=== PATIENT | male | born 1965 | race African-American/Black ===

== ENCOUNTER 2016-07-09 12:56 | Inpatient (IN) | payer OTHER ==
[2016-07-09 19:43] VITALS: BMI 27.3
--- NOTE | 2016-07-09 19:49 | HP ---
COWS - Scale Resting Pulse: 1= [place] 81-100 Sweatin= Chills/Flushing Restless Observation: 3= Extraneous Movement Pupil Size: 0= Normal to Room Light Bone or Joint Aches: 2= Severe Diffuse Aches Runny Nose/ Eye Tearin= Nasal Congestion GI Upset > 30mins: 2= Nausea/Diarrhea Tremor Observation: 2= Slight Tremor Visible Yawning Observation: 0= None Anxiety or Irritability: 2=Irritable/Anxious Goose Flesh Skin: 0=Smooth Skin COWS Score: 14 CIWA Score - CIWA Score Nausea/Vomitin-Mild Nausea/No Vomiting Muscle Tremors: 4-Moderate,w/Arms Extend Anxiety: 4-Mod. Anxious/Guarded Agitation: 4-Moderately Restless Paroxysmal Sweats: 1-Minimal Palms Moist Orientation: 0-Oriented Tacttile Disturbances: 0-None Auditory Disturbances: 0-None Visual Disturbances: 0-None Headache: 0-None Present CIWA-Ar Total Score: 14 Admission ROS S - HPI Chief Complaint: WITHDRAWAL SX Allergies/Adverse Reactions: Allergies Allergy/AdvReac Type Severity Reaction Status Date / Time No Known Drug Allergies Allergy Verified 07/09/16 19:13 History of Present Illness: 51 YEARS OLD MALE WITH LONG HISTORY OF ALCOHOL OPIOID DEPENDENCE HAS DIABETES II DENIES MENTAL ILLNESS IS ADMITTED TO DETOX Exam Limitations: No Limitations - Ebola screening Have you traveled outside of the country in the last 21 days: No Have you had contact with anyone from an Ebola affected area: No Have you been sick,other than usual withdrawal symptoms: No Do you have a fever: No - Review of Systems Constitutional: Chills, Changes in sleep, Weight Stable EENT: reports: No Symptoms Reported Respiratory: reports: No Symptoms reported Cardiac: reports: No Symptoms Reported GI: reports: Nausea, Poor Fluid Intake, Abdominal cramping : reports: No Symptoms Reported Musculoskeletal: reports: Back Pain, Joint Pain, Muscle Pain, Neck Pain Integumentary: reports: No Symptoms Reported Neuro: reports: Tremors Endocrine: reports: No Symptoms Reported Hematology: reports: No Symptoms Reported Psychiatric: reports: Judgement Intact, Mood/Affect Appropiate Other Systems: Reviewed and Negative Patient History - Patient Medical History Hx Anemia: No Hx Asthma: No Hx Chronic Obstructive Pulmonary Disease (COPD): No Hx Cancer: No Hx Cardiac Disorders: No Hx Congestive Heart Failure: No Hx Hypertension: No Hx Hypercholesterolemia: No Hx Pacemaker: No HX Cerebrovascular Accident: No Hx Seizures: No Hx Dementia: No Hx Diabetes: Yes (BGM: 143) Hx Gastrointestinal Disorders: No Hx Liver Disease: No Hx Genitourinary Disorders: No Hx Sexually Transmitted Disorders: No Hx Renal Disease (ESRD): No Hx Thyroid Disease: No Hx Human Immunodeficiency Virus (HIV): No Hx Hepatitis C: No Hx Depression: No Hx Suicide Attempt: No Hx Bipolar Disorder: No Hx Schizophrenia: No - Patient Surgical History Past Surgical History: No Hx Neurologic Surgery: No Hx Cataract Extraction: No Hx Cardiac Surgery: No Hx Lung Surgery: No Hx Breast Surgery: No Hx Breast Biopsy: No Hx Abdominal Surgery: No Hx Appendectomy: No Hx Cholecystectomy: No Hx Genitourinary Surgery: No Hx Orthopedic Surgery: No - PPD History Previous Implant?: Yes Documented Results: Negative w/o proof Implanted On Prior R Admission?: No PPD to be Administered?: Yes - Smoking Cessation Smoking history: Never smoked Have you smoked in the past 12 months: No Hx Chewing Tobacco Use: No Initiated information on smoking cessation: No - Substance & Tx. History Hx Alcohol Use: Yes Hx Substance Use: Yes Substance Use Type: Alcohol, Opiates Hx Substance Use Treatment: No - Substances Abused Heroin Route: Inhalation Frequency: Daily Amount used: 10-12 bags Age of first use: 34 Date of Last Use: 07/09/16 Alcohol Route: Oral Frequency: Daily Amount used: VOLKA 2 PINTS Age of first use: 19 Date of Last Use: 07/09/16 Family Disease History - Family Disease History Family Disease History: [place]: Father (), Mother (), Respiratory: Sister (), Other: Brother () Admission Physical Exam S - Vital Signs Vital Signs: Vital Signs - 24 hr 07/09/16 18:48 Temperature 98.7 F Pulse Rate 82 Respiratory 20 Rate Blood Pressure 114/72 - Physical General Appearance: Yes: Nourished, Appropriately Dressed, Mild Distress, Tremorous, Irritable, Sweating, Anxious HEENTM: Yes: Hearing grossly Normal, Normal ENT Inspection, Normocephalic, Normal Voice Respiratory: Yes: Chest Non-Tender, Lungs Clear, Normal Breath Sounds, No Respiratory Distress, No Accessory Muscle Use Neck: Yes: Supple, Trachea in good position Breast: Yes: Breasts Symetrical Cardiology: Yes: Regular Rhythm, Regular Rate, S1, S2 Abdominal: Yes: Non Tender Genitourinary: Yes: Within Normal Limits Extremities: Yes: Normal Range of Motion, Non-Tender, Tremors Neurological: Yes: Alert, Motor Strength 5/5, Normal Mood/Affect, Normal Response Integumentary: Yes: Warm Lymphatic: Yes: Within Normal Limits - Diagnostic (1) Alcohol dependence with uncomplicated withdrawal Current Visit: Yes Status: Acute (2) Opioid dependence with withdrawal Current Visit: Yes Status: Acute (3) Cocaine dependence, uncomplicated Current Visit: Yes Status: Chronic (4) Diabetes mellitus type II, controlled Current Visit: Yes Status: Acute Cleared for Admission [facility] - Detox or Rehab [facility] Level of Care: Medically Managed Detox Regimen/Protocol: Methadone/Librium [facility] Breath Alcohol Content Breath Alcohol Content: 0 Urine Drug Screen - Results Drug Screen Negative: No Urine Drug Screen Results: SPENCER-Cocaine, OPI-Opiates
[2016-07-09] MEDS ORDERED: MAGNESIUM CITRATE 300 ML BOTTLE PO PRN (19:52)
[2016-07-09] MEDS ORDERED: ACETAMINOPHEN 325 MG TABLET (FP) PO PRN (19:52)
[2016-07-09] MEDS ORDERED: MAG HYDROX/AL HYDROX/SIMETH 30 ML UNIT-DOSE CUP PO PRN (19:52)
[2016-07-09] MEDS ORDERED: P-EPHED 60MG/TRIPROLIDI 2.5MG TABLET PO PRN (19:52)
[2016-07-09] MEDS ORDERED: MAGNESIUM HYDROX 2400MG/30ML ORAL SUSPENSION 30 ML CUP PO PRN (19:52)
[2016-07-09] MEDS ORDERED: IBUPROFEN 400 MG TABLET (FP) PO PRN (19:52)
[2016-07-09] MEDS ORDERED: METHADONE HCL 10 MG TABLET (FOR DETOX USE ONLY) PO ONE ×2 (19:52→23:00)
[2016-07-09] MEDS ORDERED: MENTHOL/PHENOL 1 EACH UD MM PRN (19:52)
[2016-07-09] MEDS ORDERED: LOPERAMIDE HCL 2 MG CAPSULE PO PRN (19:52)
[2016-07-09] MEDS ORDERED: guaiFENesin/D-METHORPHAN HB 10 ML UNIT-DOSE CUPS PO PRN (19:52)
[2016-07-09] MEDS ORDERED: METHADONE HCL 10 MG TABLET (FOR DETOX USE ONLY) ONE (22:23)
[2016-07-09] MEDS: chlordiazePOXIDE HCL 25 MG CAPSULE PO SCH (22:26)
[2016-07-09] MEDS: THIAMINE HCL 100 MG TABLET (FP) PO SCH (22:26)
[2016-07-09] MEDS: diphenhydrAMINE HCL 50 MG CAPSULE PO PRN (22:26)
[2016-07-09 23:26] LABS: URINE APPEARANCE CLEAR; URINE BILIRUBIN NEGATIVE (NEGATIVE); URINE BLOOD NEGATIVE (NEGATIVE); URINE COLOR LTYELLOW; URINE GLUCOSE (UA) 3+ (NEGATIVE); URINE KETONE NEGATIVE (NEGATIVE); URINE LEUK ESTERASE NEGATIVE (NEGATIVE); URINE NITRITE NEGATIVE (NEGATIVE); URINE PROTEIN NEGATIVE (NEGATIVE); URINE UROBILINOGEN NEGATIVE E.U./dl (0.2-1.0)
[2016-07-10] MEDS: chlordiazePOXIDE HCL 25 MG CAPSULE PO SCH ×4 (06:18→22:28)
[2016-07-10] MEDS: metFORMIN HCL 500 MG TABLET (FP) PO SCH ×2 (06:22→17:57)
[2016-07-10 09:57] LABS: MCH 27.2 pg (25.7-33.7); MCHC 32.4 g/dl (32.0-35.9); MEAN PLT VOLUME 8.2 fl (7.5-11.1); PLATELET COUNT 250 K/MM3 (134-434); RDW 13.5 % (11.9-15.9); WHITE BLOOD COUNT 9.6 K/mm3 (4.0-10.0)
[2016-07-10 09:59] LABS: ALBUMIN 3.2 g/dl (3.4-5.0); ANION GAP 9 (8-16); BILIRUBIN,TOTAL 0.3 mg/dL (0.2-1.0); CALCIUM 8.6 mg/dL (8.5-10.1); CO2 28 mmol/L (21-32); COCKROFT - GAULT 99.79; GLUCOSE,RANDOM 172 mg/dL (74-106); SGOT/AST 16 U/L (15-37); SGPT/ALT 22 U/L (12-78); TOT PROT 6.2 g/dl (6.4-8.2)
[2016-07-10 10:00] LABS: ALK PHOS 86 U/L (45-117)
[2016-07-10] MEDS ORDERED: METHADONE HCL 10 MG TABLET (FOR DETOX USE ONLY) PO SCH (10:00)
[2016-07-10] MEDS: PRENATAL VITAMINS W/ FOLIC ACID TABLET (FP) PO SCH (10:46)
--- NOTE | 2016-07-10 12:13 | PN ---
[facility] CIWA - CIWA Score Nausea/Vomitin-No Nausea/No Vomiting Muscle Tremors: 4-Moderate,w/Arms Extend Anxiety: 3 Agitation: 3 Paroxysmal Sweats: 3 Orientation: 0-Oriented Tacttile Disturbances: 0-None Auditory Disturbances: 0-None Visual Disturbances: 0-None Headache: 0-None Present CIWA-Ar Total Score: 13 BHS COWS - Scale Resting Pulse: 1= [place] 81-100 Sweatin=Flushed/Facial Moisture Restless Observation: 1= Difficult to Sit Still Pupil Size: 0= Normal to Room Light Bone or Joint Aches: 2= Severe Diffuse Aches Runny Nose/ Eye Tearin= Nasal Congestion GI Upset > 30mins: 0= None Tremor Observation of Outstretched Hands: 1= Tremor [place], Not Seen Yawning Observation: 2= >3x During Session Anxiety or Irritability: 2=Irritable/Anxious Goose Flesh Skin: 0=Smooth Skin COWS Score: 12 S Progress Note (SOAP) Subjective: shakes sweats interrupted sleep agitation irritable Objective: 07/10/16 12:12 Vital Signs Temperature 98.2 F 07/10/16 09:48 Pulse Rate 91 H 07/10/16 09:48 Respiratory Rate 20 07/10/16 09:48 Blood Pressure 105/64 07/10/16 09:48 O2 Sat by Pulse Oximetry (%) Laboratory Tests 07/09/16 07/09/16 07/10/16 19:27 23:10 06:18 WBC RBC Hgb Hct MCV MCHC RDW Plt Count MPV Sodium Potassium Chloride Carbon Dioxide Anion Gap BUN Creatinine Creat Clearance w eGFR POC Glucometer 143 196 Random Glucose Calcium Total Bilirubin AST ALT Alkaline Phosphatase Total Protein Albumin Urine Color Ltyellow Urine Appearance Clear Urine pH 5.0 Ur Specific [place] 1.020 Urine Protein Negative Urine Glucose (UA) 3+ H Urine Ketones Negative Urine Blood Negative Urine Nitrite Negative Urine Bilirubin Negative Urine Urobilinogen Negative Ur Leukocyte Esterase Negative 07/10/16 07/10/16 07:00 07:00 WBC 9.6 RBC 4.48 Hgb 12.2 Hct 37.6 MCV 84.0 MCHC 32.4 RDW 13.5 Plt Count 250 MPV 8.2 Sodium 141 Potassium 4.1 Chloride 104 Carbon Dioxide 28 Anion Gap 9 BUN 14 Creatinine 1.0 Creat Clearance w eGFR > 60 POC Glucometer Random Glucose 172 H Calcium 8.6 Total Bilirubin 0.3 AST 16 ALT 22 Alkaline Phosphatase 86 Total Protein 6.2 L Albumin 3.2 L Urine Color Urine Appearance Urine pH Ur Specific [place] Urine Protein Urine Glucose (UA) Urine Ketones Urine Blood Urine Nitrite Urine Bilirubin Urine Urobilinogen Ur Leukocyte Esterase awake/alert ambulating no acute distress Assessment: 07/10/16 12:13 withdrawal sx Plan: continue detox increase fluids
--- NOTE | 2016-07-10 13:12 | EKG ---
Test Reason : Blood Pressure : / mmHG Vent. Rate : 081 BPM Atrial Rate : 081 BPM P-R Int : 166 ms QRS Dur : 080 ms QT Int : 362 ms P-R-T Axes : 076 055 049 degrees QTc Int : 420 ms NORMAL SINUS RHYTHM NORMAL ECG NO PREVIOUS ECGS AVAILABLE Confirmed by SAM ROACH, EULALIA ([id number]) on 07/10/2016 1:12:11 PM Referred By: Blaise Schaefer Confirmed By:EULALIA VARGAS MD
[2016-07-10] MEDS: THIAMINE HCL 100 MG TABLET (FP) PO SCH (22:28)
[2016-07-10] MEDS: diphenhydrAMINE HCL 50 MG CAPSULE PO PRN (22:29)
[2016-07-11] MEDS: metFORMIN HCL 500 MG TABLET (FP) PO SCH ×2 (06:19→17:59)
[2016-07-11] MEDS: chlordiazePOXIDE HCL 25 MG CAPSULE PO SCH ×3 (06:20→17:59)
[2016-07-11] MEDS: chlordiazePOXIDE HCL 25 MG CAPSULE PO PRN (07:37)
[2016-07-11] MEDS: PRENATAL VITAMINS W/ FOLIC ACID TABLET (FP) PO SCH (11:01)
[2016-07-11] MEDS: METHADONE HCL 5 MG TABLET (FOR DETOX USE ONLY) PO SCH (11:01)
--- NOTE | 2016-07-11 12:52 | PN ---
S CIWA - CIWA Score Nausea/Vomitin Muscle Tremors: 4-Moderate,w/Arms Extend Anxiety: 3 Agitation: 0-Normal Activity Paroxysmal Sweats: 3 Orientation: 2-Disoriented Date<2 days Tacttile Disturbances: 1-Very Mild Itch/Numbness Auditory Disturbances: 2-Mild Harshness/Frighten Visual Disturbances: 0-None Headache: 0-None Present CIWA-Ar Total Score: 17 BHS COWS - Scale Resting Pulse: 1= [place] 81-100 Sweatin= Chills/Flushing Restless Observation: 0= Sits Still Pupil Size: 0= Normal to Room Light Bone or Joint Aches: 2= Severe Diffuse Aches Runny Nose/ Eye Tearin= Runny Nose/Eyes GI Upset > 30mins: 1= Stomach Cramp Tremor Observation of Outstretched Hands: 2= Slight Tremor Visible Yawning Observation: 2= >3x During Session Anxiety or Irritability: 2=Irritable/Anxious Goose Flesh Skin: 0=Smooth Skin COWS Score: 13 S Progress Note (SOAP) Subjective: Interrupted Sleep, Tremors, Sweating. Objective: PT. A & O X 2 (DISORIENTED ABOUT DAY / DATE). 07/11/16 12:53 Vital Signs Temperature 97.2 F L 07/11/16 10:00 Pulse Rate 86 07/11/16 10:00 Respiratory Rate 18 07/11/16 10:00 Blood Pressure 103/67 07/11/16 10:00 O2 Sat by Pulse Oximetry (%) Laboratory Tests 07/09/16 07/09/16 07/10/16 19:27 23:10 06:18 WBC RBC Hgb Hct MCV MCHC RDW Plt Count MPV Sodium Potassium Chloride Carbon Dioxide Anion Gap BUN Creatinine Creat Clearance w eGFR POC Glucometer 143 196 Random Glucose Calcium Total Bilirubin AST ALT Alkaline Phosphatase Total Protein Albumin Urine Color Ltyellow Urine Appearance Clear Urine pH 5.0 Ur Specific [place] 1.020 Urine Protein Negative Urine Glucose (UA) 3+ H Urine Ketones Negative Urine Blood Negative Urine Nitrite Negative Urine Bilirubin Negative Urine Urobilinogen Negative Ur Leukocyte Esterase Negative RPR Titer 07/10/16 07/10/16 07/10/16 07:00 07:00 07:00 WBC 9.6 RBC 4.48 Hgb 12.2 Hct 37.6 MCV 84.0 MCHC 32.4 RDW 13.5 Plt Count 250 MPV 8.2 Sodium 141 Potassium 4.1 Chloride 104 Carbon Dioxide 28 Anion Gap 9 BUN 14 Creatinine 1.0 Creat Clearance w eGFR > 60 POC Glucometer Random Glucose 172 H Calcium 8.6 Total Bilirubin 0.3 AST 16 ALT 22 Alkaline Phosphatase 86 Total Protein 6.2 L Albumin 3.2 L Urine Color Urine Appearance Urine pH Ur Specific [place] Urine Protein Urine Glucose (UA) Urine Ketones Urine Blood Urine Nitrite Urine Bilirubin Urine Urobilinogen Ur Leukocyte Esterase RPR Titer Nonreactive 07/10/16 07/11/16 16:40 06:18 WBC RBC Hgb Hct MCV MCHC RDW Plt Count MPV Sodium Potassium Chloride Carbon Dioxide Anion Gap BUN Creatinine Creat Clearance w eGFR POC Glucometer 248 259 Random Glucose Calcium Total Bilirubin AST ALT Alkaline Phosphatase Total Protein Albumin Urine Color Urine Appearance Urine pH Ur Specific [place] Urine Protein Urine Glucose (UA) Urine Ketones Urine Blood Urine Nitrite Urine Bilirubin Urine Urobilinogen Ur Leukocyte Esterase RPR Titer LABS NOTED. Assessment: 07/11/16 12:53 WITHDRAWAL SYMPTOMS. Plan: CONTINUE DETOX. INCREASE PO FLUID INTAKE.
[2016-07-11] MEDS: diphenhydrAMINE HCL 50 MG CAPSULE PO PRN (23:12)
[2016-07-11] MEDS: chlordiazePOXIDE 5 MG CAPSULE PO SCH (23:12)
[2016-07-11] MEDS: THIAMINE HCL 100 MG TABLET (FP) PO SCH (23:12)
[2016-07-12] MEDS: chlordiazePOXIDE 5 MG CAPSULE PO SCH ×3 (06:17→17:39)
[2016-07-12] MEDS: metFORMIN HCL 500 MG TABLET (FP) PO SCH ×2 (06:18→17:39)
[2016-07-12] MEDS: METHADONE HCL 5 MG TABLET (FOR DETOX USE ONLY) PO SCH (11:20)
[2016-07-12] MEDS: PRENATAL VITAMINS W/ FOLIC ACID TABLET (FP) PO SCH (11:20)
[2016-07-12] MEDS: chlordiazePOXIDE HCL 25 MG CAPSULE PO PRN (14:21)
--- NOTE | 2016-07-12 19:29 | PN ---
BHS Progress Note (SOAP) Subjective: Interrupted sleep, Sweating. Objective: PT. A & O X 3. 07/12/16 19:28 Vital Signs Temperature 99.5 F 07/12/16 18:31 Pulse Rate 94 H 07/12/16 18:31 Respiratory Rate 20 07/12/16 18:31 Blood Pressure 108/63 07/12/16 18:31 O2 Sat by Pulse Oximetry (%) Laboratory Tests 07/09/16 07/09/16 07/10/16 19:27 23:10 06:18 WBC RBC Hgb Hct MCV MCHC RDW Plt Count MPV Sodium Potassium Chloride Carbon Dioxide Anion Gap BUN Creatinine Creat Clearance w eGFR POC Glucometer 143 196 Random Glucose Calcium Total Bilirubin AST ALT Alkaline Phosphatase Total Protein Albumin Urine Color Ltyellow Urine Appearance Clear Urine pH 5.0 Ur Specific [place] 1.020 Urine Protein Negative Urine Glucose (UA) 3+ H Urine Ketones Negative Urine Blood Negative Urine Nitrite Negative Urine Bilirubin Negative Urine Urobilinogen Negative Ur Leukocyte Esterase Negative RPR Titer 07/10/16 07/10/16 07/10/16 07:00 07:00 07:00 WBC 9.6 RBC 4.48 Hgb 12.2 Hct 37.6 MCV 84.0 MCHC 32.4 RDW 13.5 Plt Count 250 MPV 8.2 Sodium 141 Potassium 4.1 Chloride 104 Carbon Dioxide 28 Anion Gap 9 BUN 14 Creatinine 1.0 Creat Clearance w eGFR > 60 POC Glucometer Random Glucose 172 H Calcium 8.6 Total Bilirubin 0.3 AST 16 ALT 22 Alkaline Phosphatase 86 Total Protein 6.2 L Albumin 3.2 L Urine Color Urine Appearance Urine pH Ur Specific [place] Urine Protein Urine Glucose (UA) Urine Ketones Urine Blood Urine Nitrite Urine Bilirubin Urine Urobilinogen Ur Leukocyte Esterase RPR Titer Nonreactive 07/10/16 07/11/16 07/11/16 16:40 06:18 16:40 WBC RBC Hgb Hct MCV MCHC RDW Plt Count MPV Sodium Potassium Chloride Carbon Dioxide Anion Gap BUN Creatinine Creat Clearance w eGFR POC Glucometer 248 259 270 Random Glucose Calcium Total Bilirubin AST ALT Alkaline Phosphatase Total Protein Albumin Urine Color Urine Appearance Urine pH Ur Specific [place] Urine Protein Urine Glucose (UA) Urine Ketones Urine Blood Urine Nitrite Urine Bilirubin Urine Urobilinogen Ur Leukocyte Esterase RPR Titer 07/12/16 07/12/16 06:16 16:26 WBC RBC Hgb Hct MCV MCHC RDW Plt Count MPV Sodium Potassium Chloride Carbon Dioxide Anion Gap BUN Creatinine Creat Clearance w eGFR POC Glucometer 250 313 Random Glucose Calcium Total Bilirubin AST ALT Alkaline Phosphatase Total Protein Albumin Urine Color Urine Appearance Urine pH Ur Specific [place] Urine Protein Urine Glucose (UA) Urine Ketones Urine Blood Urine Nitrite Urine Bilirubin Urine Urobilinogen Ur Leukocyte Esterase RPR Titer LABS NOTED. Assessment: 07/12/16 19:28 WITHDRAWAL SYMPTOMS. Plan: CONTINUE DETOX.
[2016-07-12] MEDS: chlordiazePOXIDE HCL 10 MG CAPSULE PO SCH (23:13)
[2016-07-12] MEDS: THIAMINE HCL 100 MG TABLET (FP) PO SCH (23:13)
[2016-07-12] MEDS: diphenhydrAMINE HCL 50 MG CAPSULE PO PRN (23:13)
[2016-07-13] MEDS: chlordiazePOXIDE HCL 10 MG CAPSULE PO SCH ×3 (05:58→17:35)
[2016-07-13] MEDS: metFORMIN HCL 500 MG TABLET (FP) PO SCH ×2 (07:18→17:35)
[2016-07-13] MEDS ORDERED: METHADONE HCL 10 MG TABLET (FOR DETOX USE ONLY) PO SCH (10:00)
[2016-07-13] MEDS: PRENATAL VITAMINS W/ FOLIC ACID TABLET (FP) PO SCH (10:56)
[2016-07-13] MEDS ORDERED: INSULIN (NOVOLOG) ASPART 100 UNITS/ML 10ML VIAL SQ ONE (17:56)
--- NOTE | 2016-07-13 17:59 | PN ---
BHS Progress Note (SOAP) Subjective: Sweating,interrupted sleep,restless Objective: 07/13/16 17:58 Vital Signs - 8 hr 07/13/16 07/13/16 11:14 17:51 Temperature 99.1 F 98.2 F Pulse Rate 89 91 H Respiratory 18 20 Rate Blood Pressure 121/65 106/64 Laboratory Last Values WBC 9.6 K/mm3 (4.0-10.0) 07/10/16 07:00 RBC 4.48 M/mm3 (4.00-5.60) 07/10/16 07:00 Hgb 12.2 GM/dL (11.7-16.9) 07/10/16 07:00 Hct 37.6 % (35.4-49) 07/10/16 07:00 MCV 84.0 fl (80-96) 07/10/16 07:00 MCHC 32.4 g/dl (32.0-35.9) 07/10/16 07:00 RDW 13.5 % (11.9-15.9) 07/10/16 07:00 Plt Count 250 K/MM3 (134-434) 07/10/16 07:00 MPV 8.2 fl (7.5-11.1) 07/10/16 07:00 Sodium 141 mmol/L (136-145) 07/10/16 07:00 Potassium 4.1 mmol/L (3.5-5.1) 07/10/16 07:00 Chloride 104 mmol/L (98-107) 07/10/16 07:00 Carbon Dioxide 28 mmol/L (21-32) 07/10/16 07:00 Anion Gap 9 (8-16) 07/10/16 07:00 BUN 14 mg/dL (7-18) 07/10/16 07:00 Creatinine 1.0 mg/dL (0.7-1.3) 07/10/16 07:00 Creat Clearance w eGFR > 60 (>60) 07/10/16 07:00 POC Glucometer 265 UNITS (()) 07/13/16 05:57 Random Glucose 172 mg/dL (74-106) H 07/10/16 07:00 Calcium 8.6 mg/dL (8.5-10.1) 07/10/16 07:00 Total Bilirubin 0.3 mg/dL (0.2-1.0) 07/10/16 07:00 AST 16 U/L (15-37) 07/10/16 07:00 ALT 22 U/L (12-78) 07/10/16 07:00 Alkaline Phosphatase 86 U/L (45-117) 07/10/16 07:00 Total Protein 6.2 g/dl (6.4-8.2) L 07/10/16 07:00 Albumin 3.2 g/dl (3.4-5.0) L 07/10/16 07:00 Urine Color Ltyellow 07/09/16 23:10 Urine Appearance Clear 07/09/16 23:10 Urine pH 5.0 (5.0-8.0) 07/09/16 23:10 Ur Specific [place] 1.020 (1.005-1.025) 07/09/16 23:10 Urine Protein Negative (NEGATIVE) 07/09/16 23:10 Urine Glucose (UA) 3+ (NEGATIVE) H 07/09/16 23:10 Urine Ketones Negative (NEGATIVE) 07/09/16 23:10 Urine Blood Negative (NEGATIVE) 07/09/16 23:10 Urine Nitrite Negative (NEGATIVE) 07/09/16 23:10 Urine Bilirubin Negative (NEGATIVE) 07/09/16 23:10 Urine Urobilinogen Negative E.U./dl (0.2-1.0) 07/09/16 23:10 Ur Leukocyte Esterase Negative (NEGATIVE) 07/09/16 23:10 RPR Titer Nonreactive (NONREACTIVE) 07/10/16 07:00 labs noted Assessment: 07/13/16 17:59 Withdrawal sx. Plan: Continue detox
[2016-07-13] MEDS ORDERED: INSULIN (NOVOLOG) ASPART 100 UNITS/ML 10ML VIAL ONE (20:22)
[2016-07-13] MEDS: hydrOXYzine PAMOATE 50 MG CAPSULE (FP) PO PRN (21:23)
[2016-07-13] MEDS: THIAMINE HCL 100 MG TABLET (FP) PO SCH (22:29)
[2016-07-13] MEDS: diphenhydrAMINE HCL 50 MG CAPSULE PO PRN (22:29)
[2016-07-14] MEDS ORDERED: METHADONE HCL 5 MG TABLET (FOR DETOX USE ONLY) PO SCH (06:00)
[2016-07-14] MEDS ORDERED: INSULIN (NOVOLOG) ASPART 100 UNITS/ML 10ML VIAL ONE (06:55)
[2016-07-14] MEDS: metFORMIN HCL 500 MG TABLET (FP) PO SCH (06:57)
[2016-07-14] MEDS ORDERED: INSULIN SLIDING SCALE (NOVOLOG) 1 VIAL SQ SCH (07:00)
[2016-07-14] MEDS: hydrOXYzine PAMOATE 50 MG CAPSULE (FP) PO PRN (07:01)
[2016-07-14 10:14] VITALS: BP 132/67; PULSE 88; TEMP 98.4
[2016-07-14] MEDS: PRENATAL VITAMINS W/ FOLIC ACID TABLET (FP) PO SCH (10:44)
--- NOTE | 2016-07-14 14:18 | DS ---
[facility] Detox Discharge Summary Admission Date: 07/09/16 Discharge Date: 07/14/16 - History Present History: Alcohol Dependence, Cocaine Dependence, Opioid Dependence Additional Comments: ADVISED PATIENT TO FOLLOW-UP WITH [employer] SUPERVISOR AFTER DISCHARGE FROM DETOX FOR GENERAL MEDICAL ASSESSMENT. Pertinent Past History: Type II Diabetes Mellitus. - Physical Exam Results Vital Signs: Vital Signs Temperature 98.4 F 07/14/16 10:14 Pulse Rate 88 07/14/16 10:14 Respiratory Rate 18 07/14/16 10:14 Blood Pressure 132/67 07/14/16 10:14 O2 Sat by Pulse Oximetry (%) Pertinent Admission Physical Exam Findings: WITHDRAWAL SYMPTOMS. Laboratory Tests 07/09/16 07/09/16 07/10/16 19:27 23:10 06:18 WBC RBC Hgb Hct MCV MCHC RDW Plt Count MPV Sodium Potassium Chloride Carbon Dioxide Anion Gap BUN Creatinine Creat Clearance w eGFR POC Glucometer 143 196 Random Glucose Calcium Total Bilirubin AST ALT Alkaline Phosphatase Total Protein Albumin Urine Color Ltyellow Urine Appearance Clear Urine pH 5.0 Ur Specific [place] 1.020 Urine Protein Negative Urine Glucose (UA) 3+ H Urine Ketones Negative Urine Blood Negative Urine Nitrite Negative Urine Bilirubin Negative Urine Urobilinogen Negative Ur Leukocyte Esterase Negative RPR Titer 07/10/16 07/10/16 07/10/16 07:00 07:00 07:00 WBC 9.6 RBC 4.48 Hgb 12.2 Hct 37.6 MCV 84.0 MCHC 32.4 RDW 13.5 Plt Count 250 MPV 8.2 Sodium 141 Potassium 4.1 Chloride 104 Carbon Dioxide 28 Anion Gap 9 BUN 14 Creatinine 1.0 Creat Clearance w eGFR > 60 POC Glucometer Random Glucose 172 H Calcium 8.6 Total Bilirubin 0.3 AST 16 ALT 22 Alkaline Phosphatase 86 Total Protein 6.2 L Albumin 3.2 L Urine Color Urine Appearance Urine pH Ur Specific [place] Urine Protein Urine Glucose (UA) Urine Ketones Urine Blood Urine Nitrite Urine Bilirubin Urine Urobilinogen Ur Leukocyte Esterase RPR Titer Nonreactive 07/10/16 07/11/16 07/11/16 16:40 06:18 16:40 WBC RBC Hgb Hct MCV MCHC RDW Plt Count MPV Sodium Potassium Chloride Carbon Dioxide Anion Gap BUN Creatinine Creat Clearance w eGFR POC Glucometer 248 259 270 Random Glucose Calcium Total Bilirubin AST ALT Alkaline Phosphatase Total Protein Albumin Urine Color Urine Appearance Urine pH Ur Specific [place] Urine Protein Urine Glucose (UA) Urine Ketones Urine Blood Urine Nitrite Urine Bilirubin Urine Urobilinogen Ur Leukocyte Esterase RPR Titer 07/12/16 07/12/16 07/13/16 06:16 16:26 05:57 WBC RBC Hgb Hct MCV MCHC RDW Plt Count MPV Sodium Potassium Chloride Carbon Dioxide Anion Gap BUN Creatinine Creat Clearance w eGFR POC Glucometer 250 313 265 Random Glucose Calcium Total Bilirubin AST ALT Alkaline Phosphatase Total Protein Albumin Urine Color Urine Appearance Urine pH Ur Specific [place] Urine Protein Urine Glucose (UA) Urine Ketones Urine Blood Urine Nitrite Urine Bilirubin Urine Urobilinogen Ur Leukocyte Esterase RPR Titer 07/14/16 06:49 WBC RBC Hgb Hct MCV MCHC RDW Plt Count MPV Sodium Potassium Chloride Carbon Dioxide Anion Gap BUN Creatinine Creat Clearance w eGFR POC Glucometer 287 Random Glucose Calcium Total Bilirubin AST ALT Alkaline Phosphatase Total Protein Albumin Urine Color Urine Appearance Urine pH Ur Specific [place] Urine Protein Urine Glucose (UA) Urine Ketones Urine Blood Urine Nitrite Urine Bilirubin Urine Urobilinogen Ur Leukocyte Esterase RPR Titer LABS NOTED. - Treatment Hospital Course: Detox Protocol Followed, Detoxed Safely, Responded well, Discharged Condition Good Patient has Accepted a Rehab Referral to: PT. GOING HOME. 12-STEWP/AA/NA OUTPATIENT PROGRAMS RECOMMENDED. - Medication Discharge Medications: Ambulatory Orders Metformin HCl [Glucophage -] 500 mg PO BID 07/09/16 - Diagnosis (1) Alcohol dependence with uncomplicated withdrawal Status: Acute (2) Diabetes mellitus type II, controlled Status: Chronic Qualifiers: Diabetes mellitus complication status: without complication Diabetes mellitus exterminator termite insulin use: without snf use Qualified Code(s): E11.9 - Type 2 diabetes mellitus without complications (3) Opioid dependence with withdrawal Status: Acute (4) Cocaine dependence, uncomplicated Status: Acute - AMA Did Patient Leave Against Medical Advice: No
== END 2016-07-14 11:05 | disposition home or self-care (01) | DRG 773 ==
LOC: YASAS 12:56 → Y6N 19:36
PROVIDERS: ADMIT Internal Medicine Addiction Medicine; ATTEND Internal Medicine Addiction Medicine
PROC: HZ2ZZZZ Detoxification Services for Substance Abuse Treatment (ICD-10-PCS; principal; 2016-07-14)
DX: F11.23 Opioid dependence with withdrawal (principal); F10.230 Alcohol dependence with withdrawal, uncomplicated; F14.20 Cocaine dependence, uncomplicated; E11.9 Type 2 diabetes mellitus without complications; Z79.4 Long term (current) use of insulin; Z79.84 Long term (current) use of oral hypoglycemic drugs
CPT/HCPCS: 36415; 80053; 81003; 85027; 86593; 93005; 93010

== ENCOUNTER 2023-02-10 16:33 | Inpatient (IN) | payer OTHER ==
[2023-02-10 17:07] VITALS: BMI 23.6
[2023-02-10] MEDS ORDERED: MELATONIN 5 MG TABLETS PO SCH (22:00)
[2023-02-10] MEDS ORDERED: LOPERAMIDE HCL 2 MG CAPSULE PO PRN (22:52)
[2023-02-10] MEDS ORDERED: guaiFENesin 600 MG TABLET.ER (FP) PO PRN (22:52)
[2023-02-10] MEDS ORDERED: BENZOCAINE/MENTHOL (CHLORASEPTIC ) LOZENGE MM PRN (22:52)
[2023-02-10] MEDS ORDERED: P-EPHED 60MG/TRIPROLIDI 2.5MG TABLET PO PRN (22:52)
[2023-02-10] MEDS ORDERED: MAGNESIUM HYDROX 2400MG/30ML ORAL SUSPENSION 30 ML CUP PO PRN (22:52)
[2023-02-10] MEDS ORDERED: COLLOIDAL OATMEAL 1 BAR EACH TP PRN (22:52)
[2023-02-10] MEDS ORDERED: DOCUSATE SODIUM 100 MG CAPSULE (FP) PO PRN (22:52)
[2023-02-10] MEDS ORDERED: ACETAMINOPHEN 325 MG TABLET (FP) PO PRN (22:52)
[2023-02-10] MEDS ORDERED: BENZONATATE 200 MG CAPSULE PO PRN (22:52)
[2023-02-10] MEDS ORDERED: POLYETHYLENE GLYCOL (HEALTHYLAX) 3350 17 GM PACKET PO PRN (22:52)
[2023-02-10] MEDS ORDERED: MAG HYDROX/AL HYDROX/SIMETH 30 ML UNIT-DOSE CUP PO PRN (22:52)
[2023-02-11] MEDS: INSULIN SLIDING SCALE (NOVOLOG) 1 VIAL SQ SCH ×2 (01:42→07:52)
[2023-02-11 02:24] VITALS: PULSE 110; RESP 18
[2023-02-11 08:06] VITALS: BP 113/79; TEMP 98.2
[2023-02-11] MEDS ORDERED: PRENATAL VITAMINS W/ FOLIC ACID TABLET (FP) PO SCH (10:00)
[2023-02-11] MEDS ORDERED: TUBERCULIN PPD 5 TU/0.1ML SYRINGE (IN PATIENT USE ONLY) ID ONE (10:00)
[2023-02-11] MEDS ORDERED: THIAMINE HCL 100 MG TABLET (FP) PO SCH (22:00)
== END 2023-02-11 09:55 | disposition home or self-care (01) | DRG 772 ==
LOC: YASAS 16:33 → Y3W 02-11 01:13
PROVIDERS: ADMIT Allergy & Immunology; ATTEND Psychiatry & Neurology Pain Medicine
PROC: HZ42ZZZ Group Counseling for Substance Abuse Treatment, Cognitive-Behavioral (ICD-10-PCS; principal; 2023-02-11)
DX: F11.20 Opioid dependence, uncomplicated (principal); J10.1 Influenza due to other identified influenza virus with other respiratory manifestations; B33.8 Other specified viral diseases; B97.4 Respiratory syncytial virus as the cause of diseases classified elsewhere; E11.9 Type 2 diabetes mellitus without complications; Z79.84 Long term (current) use of oral hypoglycemic drugs
CPT/HCPCS: 0241U-QW; 82962